=== PATIENT | male | born 1940 | race Caucasian/White ===

== ENCOUNTER 2025-04-18 15:19 | Emergency (ER) | payer MEDICARE, SELFPAY ==
[2025-04-18 15:19] VITALS: BMI 23.0
[2025-04-18 15:34] VITALS: BP 168/99; PULSE 78; RESP 20; TEMP 36.9; O2SAT 97
--- NOTE | 2025-04-18 15:38 | PD.EDFALL ---
ED Fall Injury RME/HPI General Chief Complaint: Fall Stated Complaint: SLIPPED DOWN HILL, ABRASIONS LEFT LEG Time Seen by Provider: 04/18/25 15:28 Source: patient, RN notes reviewed and old records reviewed Arrival date/time: 04/18/25 15:19 Mode of arrival: ambulatory Limitations: no limitations RME / HPI RME / HPI Narrative: 84yom presents to ED for leg abrasions. Patient reports he slipped while walking down a hill and scraped his left knee/LLE against a [place]. Denies fall to the ground. No joint pain/swelling or numbness/tingling reported. Patient bandaged wounds prior to ED arrival. Related Data Previous Rx's ?Medication ?Instructions ?Recorded bacitracin 500 unit/gram topical 1 applic topical QDAY #14 grams 04/18/25 ointment cephalexin 500 mg capsule 500 mg PO TID 7 days #21 caps 04/18/25 Allergies Allergy/AdvReac Type Severity Reaction Status Date / Time Latex, Natural Rubber Allergy Intermediate Rash Verified 04/18/25 15:22 Review of Systems Musculoskeletal Musculoskeletal: Denies arthralgias, Denies joint swelling, Denies numbness and Denies tingling Integumentary/Breasts Comments: Reports abrasions Neurologic Neurologic: Denies numbness and Denies tingling Past Medical History Surgical History OTHER SURGICAL HX: denies pshx Social History SMOKING STATUS: Never smoker SUBSTANCE USE: does not use ALCOHOL: Never Past Medical History Comments PMH COMMENT: denies pmhx ED Exam General Limitations: Present no limitations General appearance: Present alert and in no apparent distress Head Head exam: Present atraumatic and normocephalic Eye Eye exam: Present normal appearance, PERRL and EOMI ENT ENT exam: Present normal exam and mucous membranes moist Neck Neck exam: Present normal inspection and full ROM Chest Chest inspection: Present normal inspection and symmetric chest wall rise Respiratory Respiratory exam: Present normal lung sounds bilaterally; Absent respiratory distress Cardiovascular Cardiovascular exam: Present regular rate and normal rhythm Extremities Exam Extremities exam: Present normal inspection, full ROM and normal capillary refill; Absent tenderness or joint swelling Neurological Exam Neurological exam: Present alert and oriented X3 Skin Skin exam: Present other (Superficial abrasions to left anterior knee/LLE. No wound gaping, no active bleeding) Course Quality Measures none Vital Signs Vital signs: Vital Signs Temperature 98.5 F 04/18/25 15:34 Pulse Rate 78 04/18/25 15:34 Respiratory Rate 20 04/18/25 15:34 Blood Pressure 168/99 H 04/18/25 15:34 Pulse Oximetry (%) 97 04/18/25 15:34 Oxygen Delivery Method Room Air 04/18/25 15:34 Fall MDM Narrative MDM Narrative:: 84yom presents to ED for leg abrasions. Patient reports he slipped while walking down a hill and scraped his left knee/LLE against a [place]. Denies fall to the ground. No joint pain/swelling or numbness/tingling reported. Patient bandaged wounds prior to ED arrival. Abrasions were cleaned and bandaged in ED. Home wound care discussed. Will Rx antibiotic for prophylaxis. Stable for discharge, RTED precautions given Patient data External records reviewed:: [facility] previous records (07/19/2018 ED visit for laceration) Clinical information provided by:: patient Social determinants that could affect healthcare access:: none Patient has the following chronic illnesses:: None How is presenting disease/condition affected by chronic disease/condition?: no chronic disease Evaluation data The following diagnostics were reviewed and interpreted by me:: other (specify) (None) Lab and/or radiology exams considered but not ordered:: Knee x-rays: Patient denies joint pain, no bony tenderness on exam Interpretation Summary: na Medications / Prescriptions Medications or Prescriptions considered but not ordered:: No prescription pain medications recommended at this time Medication administrations:: None Consultations Consultation(s) initiated? (list below): No Diagnosis Fall Differential Diagnosis: other (Abrasion, laceration, avulsion, contusion) Most likely diagnosis given after review of the tests above:: Abrasion Admission Indicated Admission indicated?: not indicated Admission Request Was there a request for admission?: No Disposition Plan Disposition Plan: Discharge Discharge Attestation Discharge Attestation: The patient and all family members were given an opportunity to ask questions and understood the discharge instructions. Discharge instructions specifically effects, indications for sooner follow up or return to the emergency department, and the expected course of current diagnosis. Patient condition: Stable Discharge Plan Plan Patient Disposition: HOME (Self Care) Patient condition on transfer: Stable Prescriptions/Referrals Prescriptions/Med Rec: New bacitracin 500 unit/gram ointment 1 applic topical QDAY Qty: 14 0RF cephalexin 500 mg capsule 500 mg PO TID 7 Days Qty: 21 0RF Problem List Clinical Impression: Abrasion of multiple sites of left lower extremity Patient/Caregiver Discharge Instructions Education Materials: ED Abrasions Print Language: Albanian Stand Alone Forms: Adelina Award Info., Patient Portal Info Letter PA/SOFTWARE QUALITY ASSURANCE ENGINEER Supervising Physician PA/SOFTWARE QUALITY ASSURANCE ENGINEER Supervising Physician: Zoila
== END 2025-04-18 16:45 | disposition home or self-care (01) ==
PROVIDERS: Emergency Provider Emergency Medicine; PCP Family Medicine
DX: S80.212A Abrasion, left knee, initial encounter (principal); X58.XXXA Exposure to other specified factors, initial encounter; Y92.828 Other wilderness area as the place of occurrence of the external cause; Y93.01 Activity, walking, marching and hiking
CPT/HCPCS: 99281